=== PATIENT | female | born 1980 | race African-American/Black ===

== ENCOUNTER 2022-08-10 18:52 | Emergency (ER) | payer MEDICAID, OTHER ==
[~2022-08-10] VITALS: Ht 170.2 cm; Wt 78.0 kg
[2022-08-10 19:02] VITALS: BP 142/104
--- NOTE | 2022-08-10 19:16 | NUR ---
COVID, FLU SWABS DONE.
--- NOTE | 2022-08-10 23:01 | NUR ---
Dr. Saini examining patient.
[2022-08-10] MEDS ORDERED: AZIT250T4 PO (23:04)
[2022-08-10] MEDS: AZITHROMYCIN 250 MG TAB PO ONE (23:50)
[2022-08-10] MEDS: DEXAMETHASONE 10 MG/ML VIAL IM ONE (23:56)
[2022-08-11 00:08] VITALS: BP 132/89
--- NOTE | 2022-08-11 00:08 | NUR ---
Patient discharged with v/s stable. Written and verbal after care instructions given and explained. Patient alert, oriented and verbalized understanding of instructions. Ambulatory with steady gait. All questions addressed prior to discharge. ID band removed. Patient advised to follow up with PMD. Rx of Zithromax given. Patient educated on indication of medication including possible reaction and side effects. Opportunity to ask questions provided and answered.
== END 2022-08-11 00:08 | disposition home or self-care (01) ==
LOC: MED 18:52
DX: J02.8 Acute pharyngitis due to other specified organisms (principal); Z20.822 Contact with and (suspected) exposure to COVID-19; B96.89 Other specified bacterial agents as the cause of diseases classified elsewhere; H92.03 Otalgia, bilateral; I10 Essential (primary) hypertension; Z88.0 Allergy status to penicillin; Z79.899 Other long term (current) drug therapy
CPT/HCPCS: 87426; 87804; 96372; 99283; J1100

== ENCOUNTER 2022-08-31 15:39 | Emergency (ER) | payer MEDICAID ==
[~2022-08-31] VITALS: Ht 175.3 cm; Wt 78.6 kg
[~2022-08-31 15:39] MED LIST: AZIT250T4 PO
[2022-08-31 16:19] VITALS: BP 156/103
[2022-08-31 16:42] LABS: APPEARANCE,URINE CLOUDY (CLEAR); BILIRUBIN,URINE NEGATIVE (NEGATIVE); BLOOD, URINE 3+ (NEGATIVE); COLOR,URINE AMBER (YELLOW); LEUKOCYTE ESTERASE ,URINE 2+ (NEGATIVE); NITRITE, URINE POSITIVE (NEGATIVE); UGLUCOSE NEGATIVE (NEGATIVE)
[2022-08-31 16:56] LABS: RBC,URINE 11-20 (MOD) /HPF (0-5)
[2022-08-31 16:57] LABS: OTHER CASTS, URINE None Seen /LPF (None Seen); YEAST,URINE Few /HPF (None Seen)
[2022-08-31] MEDS ORDERED: SULF-59 PO ×2 (16:59→17:56)
[2022-08-31] MEDS ORDERED: IBUP-1842 PO ×2 (16:59→17:56)
[2022-08-31] MEDS ORDERED: cefTRIAXone 1,000 MG in LIDOCAINE MPF 1% 2.1 ML IM ONE (17:00)
[2022-08-31] MEDS ORDERED: KETOROLAC 30 MG/ML VIAL IM ONE (17:00)
[2022-08-31] MEDS ORDERED: LIDOCAINE MPF 1% 5 ML ONE (17:10)
[2022-08-31] MEDS ORDERED: cefTRIAXone 1,000 MG VIAL ONE (17:10)
--- NOTE | 2022-08-31 17:35 | NUR ---
42 y/o female bib self, c/o lower abdominal pain, dysuria and hematuria x1 week. denies any back pain, fever, chills, flulike symptoms, body aches, vaginal discharge. states she currently is taking clindamycin for an ear infection. pmh: htn, seizures allergy: penicillin med: clindamycin
--- NOTE | 2022-08-31 17:40 | NUR ---
Patient discharged with v/s stable. Written and verbal after care instructions given and explained. Patient alert, oriented and verbalized understanding of instructions. Ambulatory with steady gait. All questions addressed prior to discharge. ID band removed. Patient advised to follow up with PMD. Rx of motrin, bactrim (sent) given. Patient educated on indication of medication including possible reaction and side effects. Opportunity to ask questions provided and answered. work note given
[2022-08-31 17:59] VITALS: BP 156/103
== END 2022-08-31 17:59 | disposition home or self-care (01) ==
LOC: MED 15:39
DX: N39.0 Urinary tract infection, site not specified (principal); R31.9 Hematuria, unspecified; R10.30 Lower abdominal pain, unspecified; Z88.0 Allergy status to penicillin; Z79.899 Other long term (current) drug therapy
CPT/HCPCS: 81001; 81025; 87086; 96372; 99284; J0696; J1885; J2001

== ENCOUNTER 2024-04-27 21:29 | Emergency (ER) | payer MEDICAID ==
[~2024-04-27] VITALS: Ht 170.2 cm; Wt 80.7 kg
[~2024-04-27 21:29] MED LIST changes: +IBUP-1842 PO; +SULF-59 PO
[2024-04-27 22:24] VITALS: BP 157/102; PULSE 57; RESP 16; TEMP 98.4; O2SAT 100
[2024-04-27] MEDS: METOCLOPRAMIDE 10 MG TAB PO ONE (22:49)
[2024-04-27] MEDS: KETOROLAC 60 MG/2 ML VIAL IM ONE (22:53)
[2024-04-27] MEDS ORDERED: IBUP-2213 PO (23:16)
[2024-04-27] MEDS ORDERED: CLIN300C2 PO (23:16)
[2024-04-27] MEDS ORDERED: METO-485 PO (23:16)
[2024-04-27 23:28] VITALS: BP 145/86; PULSE 60; RESP 18; TEMP 98; O2SAT 100
== END 2024-04-27 23:28 | disposition home or self-care (01) ==
LOC: MED 21:29
DX: K08.89 Other specified disorders of teeth and supporting structures (principal); G43.909 Migraine, unspecified, not intractable, without status migrainosus; I10 Essential (primary) hypertension; Z86.69 Personal history of other diseases of the nervous system and sense organs; Z79.1 Long term (current) use of non-steroidal anti-inflammatories (NSAID); Z79.2 Long term (current) use of antibiotics; Z79.899 Other long term (current) drug therapy; Z88.0 Allergy status to penicillin
CPT/HCPCS: 96372; 99283; J1885; J8597

== ENCOUNTER 2024-05-09 02:09 | Emergency (ER) | payer MEDICAID ==
[~2024-05-09] VITALS: Ht 170.2 cm; Wt 82.6 kg
[~2024-05-09 02:09] MED LIST changes: +CLIN300C2 PO; +IBUP-2213 PO; +METO-485 PO
[2024-05-09 02:23] VITALS: BP 149/99; PULSE 70; RESP 16; TEMP 98.4; O2SAT 98
[2024-05-09] MEDS: NACL 0.9% 1,000 ML IV ONE (06:27)
[2024-05-09] MEDS: diphenhydrAMINE 50 MG/ML VIAL IVP ONE (06:49)
[2024-05-09] MEDS: METOCLOPRAMIDE 10 MG/2 ML INJ VIAL IVP ONE (06:57)
[2024-05-09] MEDS: KETOROLAC 30 MG/ML VIAL IVP ONE (07:02)
[2024-05-09 07:45] VITALS: O2SAT 98
[2024-05-09 08:37] VITALS: BP 142/82; PULSE 89
== END 2024-05-09 09:05 | disposition home or self-care (01) ==
LOC: MED 02:09
DX: S39.012A Strain of muscle, fascia and tendon of lower back, initial encounter (principal); S60.212A Contusion of left wrist, initial encounter; S80.212A Abrasion, left knee, initial encounter; G43.909 Migraine, unspecified, not intractable, without status migrainosus; R11.2 Nausea with vomiting, unspecified; I10 Essential (primary) hypertension; Z86.69 Personal history of other diseases of the nervous system and sense organs; Z79.899 Other long term (current) drug therapy; Z88.0 Allergy status to penicillin; V29.498A Other motorcycle driver injured in collision with other motor vehicles in traffic accident, initial encounter; Y93.89 Activity, other specified; Y92.410 Unspecified street and highway as the place of occurrence of the external cause; Y99.8 Other external cause status
CPT/HCPCS: 96361; 96374; 96375; 99284; J1200; J1885; J2765; J7030